=== PATIENT | male | born 1960 | race African-American/Black ===

== ENCOUNTER 2018-03-08 16:39 | Inpatient (IN) ==
--- NOTE | 2018-03-08 17:32 | DR.H&P ---
H&P - History & Physical for Day of: H&P Date: 03/08/18 - Chief Complaint Chief Complaint: COUGHING UP MUCOUS, WHEEZING - History of Present Illness History of Present Illness: 57 [address] DIRECT ADMIT FROM DR LAWRENCE OFFICE AFTER PRESENTING WITH CO INCREASED COUGH WITH CHEST CONGESTION AND WHEEZING. PT CO INCREASED MUCOUS PRODUCTION. PT HAS TRACH STOMA WITH THICK GREEN MUCOUS. PT HAS DYSPHAGIA FOLLOWING A STROKE IN OCTOBER 2017, HAD ESOPHAGEAL DILATION SEVERAL MONTHS AGO AND COULD TOLERATE THICKENED LIQUIDS AND PUREED, WORSE COUGH WHILE EATING. PT HAS PMH OF THROAT CANCER, IN REMISSION, HTN, CVD, OA. PT ADMITTED FOR TREATMENT OF ACUTE BRONCHITIS. - Past Medical History Past Medical History: CVA, GERD, Hypertension, Hypothyroidism Additional Medical History: THROAT CANCER IN 2010 - Past Surgical History Surgical History: Other (ENT) - Family History Family Medical History: Cancer, Hypertension - Social History Does patient currently use any type of tobacco product: No Have you used tobacco products in the last 12 months: No Type of Tobacco Use: None Does any household member use tobacco: No Alcohol Use: None Drug Use: None - Review of Systems Constitutional: Chills Eyes: No Symptoms Reported ENT: Mouth Pain, Throat Pain Respiratory: Cough, Shortness of Breath, Sputum, Wheezing Cardiovascular: denies: Chest Pain, Edema Gastrointestinal: No Symptoms Reported, Other (DYSPHAGIA) Genitourinary: No Symptoms Reported Musculoskeletal: No Symptoms Reported Skin: No Symptoms Reported Neurological: Weakness, Change in Speech (CHRONIC) Oriented: Normal Eyes: Normal Ear: Normal Nose: Normal Throat: Exudate, Dry, Other (DIFFUSE WHITE PLAQUE TO MUCOSA) Respiratory: Rhonchi Throughout, RLL Diminished, LLL Diminished Cardiovascular: Normal : Normal Auscultation: Bowel Sounds: Normal Palpation: Normal Tenderness: Normal Skin: Decreased Turgur Musculoskeletal: Normal Psychiatric: Anxiety Affect: Anxious Speech Pattern: Appropriate, Trach(not ventilated) - Assessment/Plan (1) Acute bronchitis Status: Acute Plan: ADMIT, PNEUMONIA PROTOCOL. BLOOD AND SPUTUM CULTURES, RESP CONSULT. CXR ON ADMISSION, SUPPLEMENTAL O2, IV ATBX. BP CONTROL, VERIFY HOME MEDICATION,PPI. SPEECH CONSULT, PUREED DIET WITH INSTRUCTIONS EAT SLOWLY (2) Dysphagia Status: Acute Plan: SPEECH CONSULT (3) GERD (gastroesophageal reflux disease) Status: Acute (4) CVD (cardiovascular disease) Status: Acute (5) Hypertension Status: Acute
[2018-03-08 17:58] LABS: BASOPHILS % (AUTO) 0.5 % (0.2-1.0); EOSINOPHILS # (AUTO) 0.1 x10^3/uL (0.0-0.2); EOSINOPHILS % (AUTO) 1.7 % (0.9-2.9); HEMOGLOBIN 9.7 g/dL (13.5-18.0); LYMPHOCYTES # (AUTO) 3.6 X10^3/uL (1.3-2.9); LYMPHOCYTES % (AUTO) 44.9 % (21.0-51.0); MEAN CORPUSCULAR HEMOGLOBIN 27.1 pg (27.0-34.0); MEAN CORPUSCULAR HGB CONC 33.5 g/dL (33.0-35.0); MEAN CORPUSCULAR VOLUME 80.9 fL (80.0-100.0); MEAN PLATELET VOLUME 11.6 fL (7.4-11.0); MONOCYTES # (AUTO) 0.6 x10^3/uL (0.3-0.8); MONOCYTES % (AUTO) 6.8 % (0.0-13.0); NEUTROPHILS # (AUTO) 3.7 x10^3/uL (2.2-4.8); NEUTROPHILS % (AUTO) 46.1 % (42.0-75.0); PLATELET COUNT 143 X10^3/uL (150.0-450.0); RED BLOOD COUNT 3.59 X10^6/uL (4.7-6.0); RED CELL DISTRIBUTION WIDTH 16.4 % (11.6-16.5); WHITE BLOOD COUNT 8.1 X10^3/uL (3.6-10.0)
[2018-03-08 18:04] LABS: ALANINE AMINOTRANSFERASE 28 Units/L (12-78); ALBUMIN 3.2 g/dL (3.4-5.0); ALKALINE PHOSPHATASE 217 Units/L (46-116); ASPARTATE AMINO TRANSFERASE 26 Units/L (15-37); BLOOD UREA NITROGEN 25 mg/dL (7-18); CALCIUM 9.2 mg/dL (8.5-10.1); CARBON DIOXIDE 27.5 mmol/L (21-32); CHLORIDE 97 mmol/L (98-107); COR CA(FOR HYPOALB) 9.8 mg/dL (8.5-10.1); CREATININE 1.15 mg/dL (0.70-1.30); SODIUM 136 mmol/L (136-145); TOTAL PROTEIN 10.5 g/dL (6.4-8.2); eGFR NON BLACK RACES > 60 (>60)
[2018-03-08] MEDS ORDERED: NS 1/2 1000 ML IV 1,000 ML IV ONE (18:13)
[2018-03-08] MEDS: ZOSYN VIAL 4.5 GRAMS 4.5 G in NS 100 ML IV + SPIKE MINIBAG* 100 ML IV SCH ×2 (18:24→21:23)
[2018-03-08] MEDS: NORVASC TAB 5 MG PO SCH (18:25)
[2018-03-08] MEDS: PEPCID 20 MG IV PREMIX* 20 MG/50 ML BAG IV SCH ×2 (18:27→21:50)
[2018-03-08] MEDS: NS 1/2 1000 ML IV 1,000 ML IV SCH (18:30)
[2018-03-08 18:42] LABS: BAND NEUTROPHILS % 10 % (0-10); METAMYELOCYTES % 1
[2018-03-08 18:45] LABS: PLATELET MORPHOLOGY COMMENT NORMAL (NORMAL)
[2018-03-08] MEDS ORDERED: PREVNAR 13 IM ONE ×2 (19:15→21:30)
--- NOTE | 2018-03-08 21:26 | RAD ---
Indication: Cough Exam: PA and lateral Comparison: None. Findings: The heart is borderline enlarged. The pulmonary vessels are normal. The lungs are mildly hyperinflated with hazy subsegmental opacities scattered along the right mid lung and lower lobe. There is minimal blunting of the right costophrenic sulcus. The bones are intact. Impression: Subsegmental infiltrates scattered along the right lung base and a questionable tiny effusion vs pleural thickening laterally. Recommend short-term follow-up to assure resolution. Reported By:
[2018-03-08] MEDS: ROBITUSSIN DM PO SCH (21:50)
[2018-03-09] MEDS: TUSSIONEX PENNKINETIC SUSP PO PRN (01:39)
[2018-03-09] MEDS: DUONEB 0.5 MG/3 MG NEB SCH ×6 (01:56→21:43)
[2018-03-09] MEDS: ZOSYN VIAL 4.5 GRAMS 4.5 G in NS 100 ML IV + SPIKE MINIBAG* 100 ML IV SCH ×3 (05:27→22:00)
[2018-03-09 05:52] LABS: BASOPHILS # (AUTO) 0.1 X10^3/uL (0.0-0.1); BASOPHILS % (AUTO) 1.1 % (0.2-1.0); EOSINOPHILS # (AUTO) 0.1 x10^3/uL (0.0-0.2); EOSINOPHILS % (AUTO) 1.7 % (0.9-2.9); HEMOGLOBIN 8.7 g/dL (13.5-18.0); LYMPHOCYTES # (AUTO) 2.6 X10^3/uL (1.3-2.9); LYMPHOCYTES % (AUTO) 33.5 % (21.0-51.0); MEAN CORPUSCULAR HEMOGLOBIN 27.1 pg (27.0-34.0); MEAN CORPUSCULAR HGB CONC 33.6 g/dL (33.0-35.0); MEAN CORPUSCULAR VOLUME 80.9 fL (80.0-100.0); MEAN PLATELET VOLUME 8.8 fL (7.4-11.0); MONOCYTES # (AUTO) 2.5 x10^3/uL (0.3-0.8); MONOCYTES % (AUTO) 32.8 % (0.0-13.0); NEUTROPHILS # (AUTO) 2.4 x10^3/uL (2.2-4.8); NEUTROPHILS % (AUTO) 30.9 % (42.0-75.0); PLATELET COUNT 254 X10^3/uL (150.0-450.0); RED BLOOD COUNT 3.22 X10^6/uL (4.7-6.0); WHITE BLOOD COUNT 7.7 X10^3/uL (3.6-10.0)
[2018-03-09 06:12] LABS: ALANINE AMINOTRANSFERASE 25 Units/L (12-78); ALBUMIN 2.5 g/dL (3.4-5.0); ALKALINE PHOSPHATASE 172 Units/L (46-116); ASPARTATE AMINO TRANSFERASE 24 Units/L (15-37); BLOOD UREA NITROGEN 28 mg/dL (7-18); CALCIUM 8.4 mg/dL (8.5-10.1); CARBON DIOXIDE 23.4 mmol/L (21-32); CHLORIDE 99 mmol/L (98-107); COR CA(FOR HYPOALB) 9.6 mg/dL (8.5-10.1); COR NA(FOR HYPERGLY) 134 mmol/L (136-145); CREATININE 1.08 mg/dL (0.70-1.30); FREE T4 (FREE THYROXINE) 1.36 ng/dL (0.76-1.46); MAGNESIUM 1.8 mg/dL (1.7-2.9); SODIUM 133 mmol/L (136-145); TOTAL PROTEIN 8.5 g/dL (6.4-8.2); eGFR NON BLACK RACES > 60 (>60)
[2018-03-09 07:35] VITALS: BMI 17.9
[2018-03-09] MEDS: NS 1/2 1000 ML IV 1,000 ML IV SCH ×2 (08:51→23:19)
[2018-03-09] MEDS: NORVASC TAB 5 MG PO SCH (08:51)
[2018-03-09] MEDS: PEPCID 20 MG IV PREMIX* 20 MG/50 ML BAG IV SCH ×2 (08:51→22:00)
[2018-03-09] MEDS: ROBITUSSIN DM PO SCH ×4 (08:52→22:00)
[2018-03-09] MEDS ORDERED: NORCO 5/325 MG TAB ONE (08:56)
[2018-03-09] MEDS: NORCO 5/325 MG TAB PO PRN ×3 (10:24→22:01)
[2018-03-10] MEDS: TUSSIONEX PENNKINETIC SUSP PO PRN ×2 (04:12→22:47)
[2018-03-10] MEDS: NORCO 5/325 MG TAB PO PRN ×3 (04:12→20:04)
[2018-03-10] MEDS: ZOSYN VIAL 4.5 GRAMS 4.5 G in NS 100 ML IV + SPIKE MINIBAG* 100 ML IV SCH ×3 (05:34→22:35)
[2018-03-10 05:48] LABS: BASOPHILS # (AUTO) 0.1 X10^3/uL (0.0-0.1); BASOPHILS % (AUTO) 0.9 % (0.2-1.0); EOSINOPHILS # (AUTO) 0.1 x10^3/uL (0.0-0.2); EOSINOPHILS % (AUTO) 1.2 % (0.9-2.9); HEMATOCRIT 26.3 % (42.0-54.0); LYMPHOCYTES # (AUTO) 3.2 X10^3/uL (1.3-2.9); LYMPHOCYTES % (AUTO) 35.7 % (21.0-51.0); MEAN CORPUSCULAR HEMOGLOBIN 27.4 pg (27.0-34.0); MEAN CORPUSCULAR VOLUME 80.4 fL (80.0-100.0); MONOCYTES # (AUTO) 2.8 x10^3/uL (0.3-0.8); MONOCYTES % (AUTO) 31.7 % (0.0-13.0); NEUTROPHILS # (AUTO) 2.7 x10^3/uL (2.2-4.8); NEUTROPHILS % (AUTO) 30.5 % (42.0-75.0); PLATELET COUNT 235 X10^3/uL (150.0-450.0); RED BLOOD COUNT 3.28 X10^6/uL (4.7-6.0); RED CELL DISTRIBUTION WIDTH 15.9 % (11.6-16.5); WHITE BLOOD COUNT 8.8 X10^3/uL (3.6-10.0)
[2018-03-10 06:01] LABS: ALANINE AMINOTRANSFERASE 23 Units/L (12-78); ALBUMIN 2.5 g/dL (3.4-5.0); ALKALINE PHOSPHATASE 162 Units/L (46-116); ASPARTATE AMINO TRANSFERASE 21 Units/L (15-37); BLOOD UREA NITROGEN 18 mg/dL (7-18); CALCIUM 8.5 mg/dL (8.5-10.1); CARBON DIOXIDE 24.1 mmol/L (21-32); CHLORIDE 103 mmol/L (98-107); COR CA(FOR HYPOALB) 9.7 mg/dL (8.5-10.1); COR NA(FOR HYPERGLY) 138 mmol/L (136-145); CREATININE 1.02 mg/dL (0.70-1.30); SODIUM 137 mmol/L (136-145); TOTAL PROTEIN 8.7 g/dL (6.4-8.2); eGFR NON BLACK RACES > 60 (>60)
[2018-03-10 06:40] LABS: PLATELET MORPHOLOGY COMMENT NORMAL (NORMAL)
--- NOTE | 2018-03-10 07:21 | RAD ---
HISTORY: Bronchitis Study: Single-view chest Comparison: 03/08/2018 Findings: The trachea is midline. The cardiac silhouette is unremarkable. The lungs demonstrate a stable right basilar rounded opacity and probable area of scarring along the minor fissure. This is of uncertain etiology and may be chronic. Consider CT for further assessment of these findings.. The bony thorax is unremarkable. IMPRESSION: 1. Stable chest as above. Reported By:
[2018-03-10] MEDS: NORVASC TAB 5 MG PO SCH (09:03)
[2018-03-10] MEDS: ROBITUSSIN DM PO SCH ×4 (09:03→20:04)
[2018-03-10] MEDS: PEPCID 20 MG IV PREMIX* 20 MG/50 ML BAG IV SCH ×2 (09:03→20:15)
[2018-03-10] MEDS: DUONEB 0.5 MG/3 MG NEB SCH ×4 (09:18→21:44)
[2018-03-10] MEDS: NS 1/2 1000 ML IV 1,000 ML IV SCH (12:53)
--- NOTE | 2018-03-10 14:50 | CT ---
HISTORY: Abnormal chest x-ray Study: CT chest without contrast Comparison: Chest x-ray same day Technique: Multiple axial images of the chest were obtained from the thoracic inlet to the upper abdomen without the administration of IV contrast. Findings: The mediastinum appears to demonstrate some pretracheal and subcarinal right hilar adenopathy although the lack of contrast limits assessment. There does appear to be enlarged 11 mm pretracheal lymph node. Previously described opacity in the right lung base posteriorly is again noted and appears relatively solid measuring 4 by 3.3 cm with some apparent erosion of the adjacent rib. The other opacity in the fissure demonstrates fluid density and is felt represent a pseudotumor. Constellation of findings is highly concerning for malignancy and further evaluation with PET-CT would be of benefit.. There is also a tiny 4 mm left lower lobe nodule on image 36 which close follow-up be needed. There is no pericardial effusion observed. The thoracic aorta is normal in its contour without evidence for aneurysmal dilatation. The bony thorax is unremarkable in its appearance. The visualized portions of the upper abdomen are grossly unremarkable. IMPRESSION: 1. Mediastinal and hilar adenopathy as above with a solid-appearing right lower lobe pleural-based masslike opacity. These findings are highly concerning for malignancy and correlation with a PET-CT is recommended. Please see above discussion. Reported By:
[2018-03-11] MEDS: NS 1/2 1000 ML IV 1,000 ML IV SCH ×2 (03:15→18:15)
[2018-03-11] MEDS: NORCO 5/325 MG TAB PO PRN ×4 (03:50→22:11)
[2018-03-11] MEDS: ZOSYN VIAL 4.5 GRAMS 4.5 G in NS 100 ML IV + SPIKE MINIBAG* 100 ML IV SCH ×3 (05:03→21:21)
[2018-03-11 05:29] LABS: BASOPHILS # (AUTO) 0.2 X10^3/uL (0.0-0.1); BASOPHILS % (AUTO) 1.9 % (0.2-1.0); EOSINOPHILS # (AUTO) 0.2 x10^3/uL (0.0-0.2); EOSINOPHILS % (AUTO) 2.3 % (0.9-2.9); HEMATOCRIT 26.3 % (42.0-54.0); HEMOGLOBIN 8.9 g/dL (13.5-18.0); LYMPHOCYTES # (AUTO) 3.7 X10^3/uL (1.3-2.9); LYMPHOCYTES % (AUTO) 43.3 % (21.0-51.0); MEAN CORPUSCULAR HEMOGLOBIN 27.3 pg (27.0-34.0); MEAN CORPUSCULAR HGB CONC 33.7 g/dL (33.0-35.0); MEAN PLATELET VOLUME 9.2 fL (7.4-11.0); MONOCYTES # (AUTO) 1.6 x10^3/uL (0.3-0.8); MONOCYTES % (AUTO) 18.9 % (0.0-13.0); NEUTROPHILS # (AUTO) 2.8 x10^3/uL (2.2-4.8); NEUTROPHILS % (AUTO) 33.6 % (42.0-75.0); PLATELET COUNT 232 X10^3/uL (150.0-450.0); RED BLOOD COUNT 3.24 X10^6/uL (4.7-6.0); RED CELL DISTRIBUTION WIDTH 15.9 % (11.6-16.5); WHITE BLOOD COUNT 8.4 X10^3/uL (3.6-10.0)
[2018-03-11 05:41] LABS: BLOOD UREA NITROGEN 18 mg/dL (7-18); CALCIUM 8.9 mg/dL (8.5-10.1); CARBON DIOXIDE 25.4 mmol/L (21-32); CHLORIDE 102 mmol/L (98-107); COR NA(FOR HYPERGLY) 138 mmol/L (136-145); CREATININE 0.98 mg/dL (0.70-1.30); SODIUM 137 mmol/L (136-145); eGFR NON BLACK RACES > 60 (>60)
[2018-03-11 06:30] LABS: BAND NEUTROPHILS % 3 % (0-10); METAMYELOCYTES % 4
[2018-03-11 06:31] LABS: PLATELET MORPHOLOGY COMMENT NORMAL (NORMAL)
[2018-03-11] MEDS: DUONEB 0.5 MG/3 MG NEB SCH ×5 (07:25→20:57)
--- NOTE | 2018-03-11 08:58 | CT ---
HISTORY: Right lung mass Study: CT chest with contrast Comparison: CT chest without contrast 03/10/2018 Technique: Axial post-contrast images with coronal and sagittal reformats. Dose reduction procedures were used with mA/kv adjusted for body size. Findings: Examination of the mediastinum demonstrated abnormal retrocaval pretracheal, AP window, and subcarinal lymphadenopathy. No definite hilar adenopathy is identified. No pleural effusions are identified. No chest wall or axillary abnormality is identified. Those portions of the upper abdominal organs visualized were within normal limits. Examination of the lung arreguin demonstrated some subsegmental atelectasis in the right middle lobe abutting the fissure. Posteriorly abutting the pleura in the right lower lobe is again identified a 4.2 by 3.1 by 3.7 cm mass lesion with some central low attenuation suggesting the possibility of necrosis. A primary lung neoplasm must be excluded. PET-CT would be of further diagnostic value in assessing the mass and the mediastinal adenopathy previously described. Once again noted is a 4 mm left upper lobe pulmonary nodule unchanged from the prior examination. IMPRESSION: 4.2 x 3.1 x 3.7 cm right lower lobe lung mass abutting the posterior pleura with associated mediastinal adenopathy. Primary lung neoplasm must be excluded. PET-CT is recommended for further evaluation 4 mm left upper lobe pulmonary nodule which will require CT follow-up. Reported By:
[2018-03-11] MEDS: NORVASC TAB 5 MG PO SCH (09:30)
[2018-03-11] MEDS: PEPCID 20 MG IV PREMIX* 20 MG/50 ML BAG IV SCH ×2 (09:30→20:12)
[2018-03-11] MEDS: ROBITUSSIN DM PO SCH ×4 (09:30→20:12)
--- NOTE | 2018-03-11 11:08 | CT ---
HISTORY: Lung mass Study: CT abdomen pelvis with contrast Comparison: None Technique: Axial post-contrast images with coronal and sagittal reformats. Dose reduction procedures were used with mA/kv adjusted for body size. Findings: Once again noted is the patient's right lower lobe lung mass. Primary lung neoplasm must be excluded. The left lung base is clear. The liver, spleen, adrenal glands, and pancreas are within normal limits. No opaque stones are visible within the gallbladder. The kidneys are unobstructed and without stones or masses. No ureteral calculi are identified. Mild calcific atherosclerotic changes present in a nondilated abdominal aorta. No intraperitoneal or retroperitoneal lymphadenopathy of significance is identified. The appendix is not identified with absolute certainty. There are no secondary signs of appendicitis present. There are no findings suggestive of diverticulitis or colitis. Examination of the pelvis demonstrated no evidence for pelvic masses, pelvic fluid, or pelvic lymphadenopathy. No bladder abnormality is identified. There is a large amount of stool within the colon suggestive of constipation. There is a sclerotic lesion in the left iliac wing. Evaluation with nuclear medicine bone scan is recommended to exclude a significant active process. No lytic skeletal lesions are identified. IMPRESSION: No acute abnormality within the abdomen or pelvis Constipation Sclerotic lesion left iliac bone for which further evaluation with nuclear medicine bone scan is recommended. Right lower lobe lung mass. Primary lung neoplasm must be excluded. Reported By:
[2018-03-11] MEDS: TUSSIONEX PENNKINETIC SUSP PO PRN (12:30)
[2018-03-11 14:56] LABS: ALANINE AMINOTRANSFERASE 22 Units/L (12-78); ASPARTATE AMINO TRANSFERASE 23 Units/L (15-37)
[2018-03-11 14:57] LABS: ALBUMIN 2.5 g/dL (3.4-5.0); ALKALINE PHOSPHATASE 154 Units/L (46-116); COR CA(FOR HYPOALB) 10.1 mg/dL (8.5-10.1); TOTAL PROTEIN 8.8 g/dL (6.4-8.2)
[2018-03-11] MEDS ORDERED: NS 1/2 1000 ML IV 1,000 ML IV ONE (20:06)
[2018-03-12 04:57] LABS: BLOOD UREA NITROGEN 19 mg/dL (7-18); CARBON DIOXIDE 23.4 mmol/L (21-32); CHLORIDE 105 mmol/L (98-107); CREATININE 1.02 mg/dL (0.70-1.30); SODIUM 141 mmol/L (136-145); eGFR NON BLACK RACES > 60 (>60)
[2018-03-12 05:06] LABS: BASOPHILS % (AUTO) 0.5 % (0.2-1.0); EOSINOPHILS # (AUTO) 0.2 x10^3/uL (0.0-0.2); EOSINOPHILS % (AUTO) 4.2 % (0.9-2.9); HEMATOCRIT 28.1 % (42.0-54.0); HEMOGLOBIN 9.2 g/dL (13.5-18.0); LYMPHOCYTES # (AUTO) 2.2 X10^3/uL (1.3-2.9); LYMPHOCYTES % (AUTO) 47.3 % (21.0-51.0); MEAN CORPUSCULAR HEMOGLOBIN 26.6 pg (27.0-34.0); MEAN CORPUSCULAR HGB CONC 32.8 g/dL (33.0-35.0); MEAN CORPUSCULAR VOLUME 81.2 fL (80.0-100.0); MEAN PLATELET VOLUME 10.1 fL (7.4-11.0); MONOCYTES # (AUTO) 1.1 x10^3/uL (0.3-0.8); MONOCYTES % (AUTO) 25.1 % (0.0-13.0); NEUTROPHILS % (AUTO) 22.9 % (42.0-75.0); PLATELET COUNT 149 X10^3/uL (150.0-450.0); RED BLOOD COUNT 3.47 X10^6/uL (4.7-6.0); RED CELL DISTRIBUTION WIDTH 15.9 % (11.6-16.5); WHITE BLOOD COUNT 4.6 X10^3/uL (3.6-10.0)
[2018-03-12] MEDS: ZOSYN VIAL 4.5 GRAMS 4.5 G in NS 100 ML IV + SPIKE MINIBAG* 100 ML IV SCH ×3 (05:22→21:14)
[2018-03-12] MEDS: NORCO 5/325 MG TAB PO PRN ×3 (05:30→17:38)
[2018-03-12] MEDS: NS 1/2 1000 ML IV 1,000 ML IV SCH ×2 (05:52→20:53)
[2018-03-12 06:20] LABS: BAND NEUTROPHILS % 3 % (0-10); METAMYELOCYTES % 1
[2018-03-12 06:21] LABS: PLATELET MORPHOLOGY COMMENT NORMAL (NORMAL)
[2018-03-12] MEDS: DUONEB 0.5 MG/3 MG NEB SCH ×4 (08:34→20:11)
[2018-03-12] MEDS: NORVASC TAB 5 MG PO SCH (09:17)
[2018-03-12] MEDS: PEPCID 20 MG IV PREMIX* 20 MG/50 ML BAG IV SCH ×2 (09:17→20:47)
[2018-03-12] MEDS: ROBITUSSIN DM PO SCH ×4 (09:17→20:47)
[2018-03-12] MEDS: TUSSIONEX PENNKINETIC SUSP PO PRN (09:18)
[2018-03-12] MEDS: LEVAQUIN PREMIX IV 250 MG 250 MG/50 ML BAG IV SCH (17:48)
[2018-03-13] MEDS: NORCO 5/325 MG TAB PO PRN ×2 (00:20→06:12)
[2018-03-13] MEDS: ZOSYN VIAL 4.5 GRAMS 4.5 G in NS 100 ML IV + SPIKE MINIBAG* 100 ML IV SCH (05:09)
[2018-03-13 05:32] LABS: BASOPHILS % (AUTO) 0.8 % (0.2-1.0); EOSINOPHILS # (AUTO) 0.2 x10^3/uL (0.0-0.2); EOSINOPHILS % (AUTO) 3.3 % (0.9-2.9); HEMATOCRIT 30.1 % (42.0-54.0); HEMOGLOBIN 9.8 g/dL (13.5-18.0); LYMPHOCYTES # (AUTO) 2.9 X10^3/uL (1.3-2.9); LYMPHOCYTES % (AUTO) 52.3 % (21.0-51.0); MEAN CORPUSCULAR HEMOGLOBIN 26.7 pg (27.0-34.0); MEAN CORPUSCULAR HGB CONC 32.6 g/dL (33.0-35.0); MEAN CORPUSCULAR VOLUME 81.9 fL (80.0-100.0); MEAN PLATELET VOLUME 8.9 fL (7.4-11.0); MONOCYTES # (AUTO) 0.4 x10^3/uL (0.3-0.8); MONOCYTES % (AUTO) 7.2 % (0.0-13.0); NEUTROPHILS % (AUTO) 36.4 % (42.0-75.0); PLATELET COUNT 223 X10^3/uL (150.0-450.0); RED BLOOD COUNT 3.67 X10^6/uL (4.7-6.0); RED CELL DISTRIBUTION WIDTH 15.8 % (11.6-16.5); WHITE BLOOD COUNT 5.6 X10^3/uL (3.6-10.0)
[2018-03-13 05:40] LABS: ALANINE AMINOTRANSFERASE 27 Units/L (12-78); ALBUMIN 2.6 g/dL (3.4-5.0); ALKALINE PHOSPHATASE 161 Units/L (46-116); ASPARTATE AMINO TRANSFERASE 33 Units/L (15-37); BLOOD UREA NITROGEN 22 mg/dL (7-18); CARBON DIOXIDE 21.7 mmol/L (21-32); CHLORIDE 105 mmol/L (98-107); COR CA(FOR HYPOALB) 10.1 mg/dL (8.5-10.1); CREATININE 1.13 mg/dL (0.70-1.30); SODIUM 140 mmol/L (136-145); TOTAL PROTEIN 9.5 g/dL (6.4-8.2); eGFR NON BLACK RACES > 60 (>60)
[2018-03-13] MEDS: LEVAQUIN PREMIX IV 250 MG 250 MG/50 ML BAG IV SCH (09:02)
[2018-03-13] MEDS: PEPCID 20 MG IV PREMIX* 20 MG/50 ML BAG IV SCH (09:02)
[2018-03-13] MEDS: ROBITUSSIN DM PO SCH (09:03)
[2018-03-13] MEDS: NORVASC TAB 5 MG PO SCH (09:03)
[2018-03-13] MEDS: DUONEB 0.5 MG/3 MG NEB SCH ×3 (09:21→12:30)
[2018-03-13 13:30] VITALS: BP 124/82
--- NOTE | 2018-03-13 13:48 | PCM.PROG ---
Progress Note - Progress Note for Day of Date of Exam: 03/13/18 - Subjective Subjective: 57 BM ADMITTED ON 03/08 WITH SUSPECTED ASPIPRATION PNEUMONIA. PT HAD CT CHEST REVEALING RIGHT LUNG MASS. PT HAS PX OF THROAT CANCER, IN REMISSION SINCE ~2010. PT CURRENTLY ON PUREED DIET, TOLERATING WELL, ON IV ATBX AND RESP THERAPY. DISCUSSED RAD REPORT WITH PT AND DISCUSSED PLAN FOR TRANSFER TO TERTIARY CARE FOR ESOPHAGEAL DILATION AND EVALUATION OF LUNG MASS. - Past Medical Family Social History Past Med/Fam/Surg Hx: No changes since H&P Allergies: Allergies No Known Drug Allergies Allergy (Verified 03/08/18 18:03) - Review of Systems ROS: No change since H&P - Vital Signs and I&O's Vital Signs: Temperature 98.6 F Pulse Rate [Radial] 104 Pulse Rate 100 Respiratory Rate 18 Blood Pressure [Left Arm] 124/82 Blood Pressure [Right Arm] 134/78 O2 Sat by Pulse Oximetry 95 Intake and Output: Intake & Output 03/11/18 03/12/18 03/13/18 03/14/18 11:59 11:59 11:59 11:59 Intake Total 1881 / 1881 2196 / 2196 2130 / 2130 Output Total 1025 / 1025 650 / 650 225 / 225 Balance 856 / 856 1546 / 1546 1905 / 1905 - Physical Exam Oriented: Normal Eyes: Normal Ear: Normal Nose: Normal Throat: Exudate, Dry, Other (DIFFUSE WHITE PLAQUE TO MUCOSA) Respiratory: Diminished, Rhonchi Cardiovascular: Normal : Normal Auscultation: Bowel Sounds: Normal Tenderness: Normal Skin: Decreased Turgur Musculoskeletal: Normal Psychiatric: Anxiety Affect: Anxious Speech Pattern: Aphasic - Laboratory and Diagnostics Result Diagrams: 03/13/18 04:52 03/13/18 04:52 Labs: 03/08/18 17:40 Blood Blood Culture - Final Salmonella Arizonae 03/08/18 19:20 Sputum - Expectorated Sputum Sputum Culture - Final Proteus Mirabilis 03/08/18 19:20 Sputum - Expectorated Sputum - Final 03/08/18 17:35 Blood Blood Culture - Preliminary Laboratory WBC 5.6 X10^3/uL (3.6-10.0) 03/13/18 04:52 RBC 3.67 X10^6/uL (4.7-6.0) L 03/13/18 04:52 Hgb 9.8 g/dL (13.5-18.0) L 03/13/18 04:52 Hct 30.1 % (42.0-54.0) L 03/13/18 04:52 MCV 81.9 fL (80.0-100.0) 03/13/18 04:52 MCH 26.7 pg (27.0-34.0) L 03/13/18 04:52 MCHC 32.6 g/dL (33.0-35.0) L 03/13/18 04:52 RDW 15.8 % (11.6-16.5) 03/13/18 04:52 Plt Count 223 X10^3/uL (150.0-450.0) 03/13/18 04:52 Plt Count Comment Adequate (ADEQUATE) 03/12/18 04:35 MPV 8.9 fL (7.4-11.0) 03/13/18 04:52 Neut % (Auto) 36.4 % (42.0-75.0) L 03/13/18 04:52 Lymph % (Auto) 52.3 % (21.0-51.0) H 03/13/18 04:52 Wythe % (Auto) 7.2 % (0.0-13.0) 03/13/18 04:52 Eos % (Auto) 3.3 % (0.9-2.9) H 03/13/18 04:52 Baso % (Auto) 0.8 % (0.2-1.0) 03/13/18 04:52 Neut # (Auto) 2.0 x10^3/uL (2.2-4.8) L 03/13/18 04:52 Lymph # (Auto) 2.9 X10^3/uL (1.3-2.9) 03/13/18 04:52 Wythe # (Auto) 0.4 x10^3/uL (0.3-0.8) 03/13/18 04:52 Eos # (Auto) 0.2 x10^3/uL (0.0-0.2) 03/13/18 04:52 Baso # (Auto) 0.0 X10^3/uL (0.0-0.1) 03/13/18 04:52 Absolute Nucleated RBC 0.2 /100WBC 03/13/18 04:52 Total Counted 100 03/12/18 04:35 Neutrophils % (Manual) 36 % (39-76) L 03/12/18 04:35 Band Neutrophils % 3 % (0-10) 03/12/18 04:35 Lymphocytes % (Manual) 46 % (13-43) H 03/12/18 04:35 Monocytes % (Manual) 7 % (4-9) 03/12/18 04:35 Eosinophils % (Manual) 5 % (0-6) 03/12/18 04:35 Metamyelocytes % 1 03/12/18 04:35 Atypical Lymphocytes 2 03/12/18 04:35 Plt Clumps, EDTA Rare 03/08/18 17:35 Plt Morphology Comment Normal (NORMAL) 03/12/18 04:35 RBC Morphology Normal (NORMAL) 03/12/18 04:35 Sodium 140 mmol/L (136-145) 03/13/18 04:52 Corrected Sodium TNP 03/13/18 04:52 Potassium 5.1 mmol/L (3.5-5.1) 03/13/18 04:52 Chloride 105 mmol/L (98-107) 03/13/18 04:52 Carbon Dioxide 21.7 mmol/L (21-32) 03/13/18 04:52 BUN 22 mg/dL (7-18) H 03/13/18 04:52 Creatinine 1.13 mg/dL (0.70-1.30) 03/13/18 04:52 Est GFR (MDRD) Af Amer > 60 (>60) 03/13/18 04:52 Est GFR (MDRD) Non-Af > 60 (>60) 03/13/18 04:52 Glucose 93 mg/dL (65-99) 03/13/18 04:52 Calcium 9.0 mg/dL (8.5-10.1) 03/13/18 04:52 Corrected Calcium 10.1 mg/dL (8.5-10.1) 03/13/18 04:52 Magnesium 1.8 mg/dL (1.7-2.9) 03/09/18 05:00 Total Bilirubin 0.20 mg/dL (0.2-1.0) 03/13/18 04:52 AST 33 Units/L (15-37) 03/13/18 04:52 ALT 27 Units/L (12-78) 03/13/18 04:52 Alkaline Phosphatase 161 Units/L (46-116) H 03/13/18 04:52 Total Protein 9.5 g/dL (6.4-8.2) H 03/13/18 04:52 Albumin 2.6 g/dL (3.4-5.0) L 03/13/18 04:52 Globulin 6.9 g/dL (2.5-4.5) H 03/13/18 04:52 Albumin/Globulin Ratio 0.4 Ratio (1.1-2.1) L 03/13/18 04:52 Free T4 1.36 ng/dL (0.76-1.46) 03/09/18 05:00 - Plan (1) Acute bronchitis Status: Acute Plan: PNEUMONIA PROTOCOL. BLOOD AND SPUTUM CULTURES COLLECTED ON ADMISSION, RESP CARE. SUPPLEMENTAL O2, IV ATBX. BP CONTROL, ,PPI. SPEECH CONSULT, PUREED DIET WITH INSTRUCTIONS EAT SLOWLY (2) Dysphagia Status: Acute Plan: SPEECH CONSULT (3) GERD (gastroesophageal reflux disease) Status: Acute (4) CVD (cardiovascular disease) Status: Acute (5) Hypertension Status: Acute (6) Mass of right lung Status: Acute Plan: TRANSFER TO TERTIARY CARE FOR TISSUE BIOPSY, PULMONOLGY EVALUATION
== END 2018-03-13 12:55 | disposition short-term general hospital (02) | DRG 177 ==
LOC: MED/SURG 17:02
PROVIDERS: ADMIT Internal Medicine; ATTEND Internal Medicine
DX: R13.11 Dysphagia, oral phase; R06.02 Shortness of breath; Z23 Encounter for immunization; Z93.0 Tracheostomy status; J69.8 Pneumonitis due to inhalation of other solids and liquids; J20.8 Acute bronchitis due to other specified organisms; Z85.818 Personal history of malignant neoplasm of other sites of lip, oral cavity, and pharynx; R94.5 Abnormal results of liver function studies; I10 Essential (primary) hypertension; A02.1 Salmonella sepsis; I69.391 Dysphagia following cerebral infarction; R91.8 Other nonspecific abnormal finding of lung field; K22.2 Esophageal obstruction; A02.8 Other specified salmonella infections
CPT/HCPCS: 36415; 71010; 71020; 71045; 71046; 71250; 71260; 74177; 80048; 80053; 83735; 84439; 84480; 85025; 87040; 87070; 87077; 87186; 87205; 94640; 94669; 94760; 97163; 97165; 99221; 99231; A4222; S0028; 90670; J1956; J2543; J7050; J7620

== ENCOUNTER 2018-03-28 18:15 | Inpatient (IN) ==
[2018-03-31 05:11] LABS: BASOPHILS % (AUTO) 0.2 % (0.2-1.0); EOSINOPHILS # (AUTO) 0.2 x10^3/uL (0.0-0.2); EOSINOPHILS % (AUTO) 3.8 % (0.9-2.9); HEMATOCRIT 29.1 % (42.0-54.0); HEMOGLOBIN 9.6 g/dL (13.5-18.0); LYMPHOCYTES # (AUTO) 3.2 X10^3/uL (1.3-2.9); LYMPHOCYTES % (AUTO) 52.1 % (21.0-51.0); MEAN CORPUSCULAR HEMOGLOBIN 27.1 pg (27.0-34.0); MEAN CORPUSCULAR HGB CONC 33.1 g/dL (33.0-35.0); MEAN CORPUSCULAR VOLUME 81.9 fL (80.0-100.0); MEAN PLATELET VOLUME 9.1 fL (7.4-11.0); MONOCYTES # (AUTO) 0.4 x10^3/uL (0.3-0.8); NEUTROPHILS # (AUTO) 2.3 x10^3/uL (2.2-4.8); NEUTROPHILS % (AUTO) 37.9 % (42.0-75.0); PLATELET COUNT 224 X10^3/uL (150.0-450.0); RED BLOOD COUNT 3.55 X10^6/uL (4.7-6.0); RED CELL DISTRIBUTION WIDTH 16.1 % (11.6-16.5); WHITE BLOOD COUNT 6.1 X10^3/uL (3.6-10.0)
[2018-03-31 05:27] LABS: ALANINE AMINOTRANSFERASE 20 Units/L (12-78); ALBUMIN 2.7 g/dL (3.4-5.0); ALKALINE PHOSPHATASE 165 Units/L (46-116); ASPARTATE AMINO TRANSFERASE 15 Units/L (15-37); BLOOD UREA NITROGEN 14 mg/dL (7-18); CALCIUM 9.1 mg/dL (8.5-10.1); CARBON DIOXIDE 24.3 mmol/L (21-32); CHLORIDE 102 mmol/L (98-107); COR CA(FOR HYPOALB) 10.1 mg/dL (8.5-10.1); COR NA(FOR HYPERGLY) 138 mmol/L (136-145); CREATININE 0.88 mg/dL (0.70-1.30); SODIUM 138 mmol/L (136-145); TOTAL PROTEIN 8.5 g/dL (6.4-8.2); eGFR NON BLACK RACES > 60 (>60)
[2018-03-31 05:29] LABS: BAND NEUTROPHILS % 2 % (0-10); PLATELET MORPHOLOGY COMMENT NORMAL (NORMAL)
[2018-03-31] MEDS: NORCO 5/325 MG TAB PO PRN ×3 (05:54→20:06)
[2018-03-31 08:19] VITALS: BMI 19.8
--- NOTE | 2018-03-31 11:36 | RAD ---
HISTORY: COPD and lung cancer Study: Single view of the chest. Comparison: 03/08/2018 Findings: The cardiomediastinal silhouette is normal. Right-sided lung opacities are unchanged from prior. Osseous structures demonstrate no acute abnormality. IMPRESSION: 1. No acute cardiopulmonary process. 2. No significant change in appearance of right lung opacities which are likely related to patient's diagnosis of lung cancer. Reported By:
[2018-03-31] MEDS ORDERED: ZYLOPRIM PO SCH (12:00)
[2018-03-31] MEDS ORDERED: APRESOLINE TAB 25 MG PO PRN ×2 (13:21→13:33)
--- NOTE | 2018-03-31 13:28 | DR.H&P ---
H&P - History & Physical for Day of: H&P Date: 03/30/18 - Chief Complaint Chief Complaint: GENERALIZED WEAKNESS - History of Present Illness History of Present Illness: 57 BM BACK TRANSFER FROM [facility] WITH GENERALIZED WEAKNESS AND ADULT FAILURE TO THRIVE WITH DIAGNOSIS OF METASTATIC LUNG CANCER, APHAGIA S/P CVA. PT HAS PMH OF HTN, THROAT CANCER, NEWLY DX WITH LUNG CANCER, APHAGIA, DYSPHAGIA FOLLOW CVA, COPD, HTN, OA. PLAN TO CONSULT CASE MANAGEMENT FOR PLACEMENT IN LTC FACILITY, PT IS UNABLE TO CARE FOR HIMSELF DUE TO CHRONIC ILLNESS. - Past Medical History Past Medical History: Arthritis, COPD, CVA, Depression, GERD, Hypertension, Hypothyroidism Additional Medical History: THROAT CANCER IN 2010 - Past Surgical History Surgical History: Other - Family History Family Medical History: Cancer, Hypertension - Social History Does patient currently use any type of tobacco product: No Have you used tobacco products in the last 12 months: No Type of Tobacco Use: None Does any household member use tobacco: No Alcohol Use: None Drug Use: None - Medications Home Medications: No Known Drug Allergies Allergy (Verified 03/08/18 18:03) CONTINUE taking the following medications ascorbic acid (vitamin C) 1,000 mg PO DAILY 03/30/18 [History] aspirin 81 mg PO QDAY 03/30/18 [History] ferrous sulfate 325 mg PO TID 03/30/18 [History] hydralazine 25 mg PO Q4H PRN 03/30/18 [History] loratadine 10 mg PO QDAY 03/30/18 [History] pantoprazole 40 mg PO QDAY 03/30/18 [History] - Review of Systems Constitutional: Weakness Eyes: No Symptoms Reported ENT: No Symptoms Reported Respiratory: Cough, Sputum Cardiovascular: No Symptoms Reported Gastrointestinal: No Symptoms Reported, Other (WEIGHT LOSS, DIFFICULT SWALLOWING ) Genitourinary: No Symptoms Reported Musculoskeletal: Back Pain Skin: No Symptoms Reported Neurological: Weakness - Physical Exam Vital Signs: Temperature 98.3 F Pulse Rate [Left Radial] 92 Respiratory Rate 18 Blood Pressure [Left Arm] 137/88 Blood Pressure [Right Arm] 134/78 Blood Pressure 124/82 O2 Sat by Pulse Oximetry 97 Oriented: Normal Eyes: Normal Ear: Normal Nose: Normal Throat: Normal, Other (TRACH STOMA) Respiratory: Rhonchi Throughout (MILD CENTRAL RHONCHI), RML Diminished, RLL Diminished, LML Diminished, LLL Diminished Cardiovascular: Normal : Normal Auscultation: Bowel Sounds: Normal Palpation: Normal Tenderness: Normal Skin: Decreased Turgur Musculoskeletal: Right, Left, Leg, Back:Lumbar, Sensory Deficit, Instability Mood Description: Calm Speech Pattern: Aphasic - Assessment/Plan (1) Weakness Status: Acute Plan: ADMIT, ROUTINE LABS CBC CMP. CXR ON ADMISSION. VERIFY AND RESUME HOME MEDICATION. PRN RESP, PUREED DIET. CHOKING PRECAUTIONS (2) Lung cancer Status: Acute (3) Adult failure to thrive Status: Acute (4) Dysphagia Status: Acute (5) GERD (gastroesophageal reflux disease) Status: Acute (6) CVD (cardiovascular disease) Status: Acute (7) Hypertension Status: Acute - Allergies Allergies/Adverse Reactions: Allergies Allergy/AdvReac Type Severity Reaction Status Date / Time No Known Drug Allergies Allergy Verified 03/08/18 18:03
--- NOTE | 2018-03-31 13:37 | PCM.PROG ---
Progress Note - Progress Note for Day of Date of Exam: 03/31/18 - Subjective Subjective: 57 BM WITH METASTATIC LUNG CANCER, GENERALIZED WEAKNESS AND ADULT FAILURE TO THRIVE, BACK TRANSFER FROM [facility] FOLLOWING EXTENDED HOSPITALIZATION. CASE MANAGEMENT CONSULTED FOR PERMANENT HALFWAY PLACEMENT. PT HAD ADMISSION LABS AND CXR THIS AM, CONTINUED HOME MEDICATION AND PRN RESP SUCTION AND DUO NEBS. - Past Medical Family Social History Past Med/Fam/Surg Hx: No changes since H&P Allergies: Allergies No Known Drug Allergies Allergy (Verified 03/08/18 18:03) - Review of Systems ROS: No change since H&P - Vital Signs and I&O's Vital Signs: Temperature 98.3 F Pulse Rate [Left Radial] 92 Respiratory Rate 18 Blood Pressure [Left Arm] 137/88 Blood Pressure [Right Arm] 134/78 Blood Pressure 124/82 O2 Sat by Pulse Oximetry 97 Intake and Output: Intake & Output 03/29/18 03/30/18 03/31/18 04/01/18 11:59 11:59 11:59 11:59 Intake Total 480 / 480 Output Total 600 / 600 Balance -120 / -120 - Physical Exam Oriented: Normal Eyes: Normal Ear: Normal Nose: Normal Throat: Normal, Other (TRACH STOMA) Respiratory: Diminished, Rhonchi Cardiovascular: Normal : Normal Auscultation: Bowel Sounds: Normal Tenderness: Normal Skin: Decreased Turgur Musculoskeletal: Right, Left, Leg, Back:Lumbar, Sensory Deficit, Instability Mood Description: Calm Speech Pattern: Aphasic - Laboratory and Diagnostics Result Diagrams: 03/31/18 04:50 03/31/18 04:50 Labs: Laboratory WBC 6.1 X10^3/uL (3.6-10.0) 03/31/18 04:50 RBC 3.55 X10^6/uL (4.7-6.0) L 03/31/18 04:50 Hgb 9.6 g/dL (13.5-18.0) L 03/31/18 04:50 Hct 29.1 % (42.0-54.0) L 03/31/18 04:50 MCV 81.9 fL (80.0-100.0) 03/31/18 04:50 MCH 27.1 pg (27.0-34.0) 03/31/18 04:50 MCHC 33.1 g/dL (33.0-35.0) 03/31/18 04:50 RDW 16.1 % (11.6-16.5) 03/31/18 04:50 Plt Count 224 X10^3/uL (150.0-450.0) 03/31/18 04:50 Plt Count Comment Adequate (ADEQUATE) 03/31/18 04:50 MPV 9.1 fL (7.4-11.0) 03/31/18 04:50 Neut % (Auto) 37.9 % (42.0-75.0) L 03/31/18 04:50 Lymph % (Auto) 52.1 % (21.0-51.0) H 03/31/18 04:50 Foster % (Auto) 6.0 % (0.0-13.0) 03/31/18 04:50 Eos % (Auto) 3.8 % (0.9-2.9) H 03/31/18 04:50 Baso % (Auto) 0.2 % (0.2-1.0) 03/31/18 04:50 Neut # (Auto) 2.3 x10^3/uL (2.2-4.8) 03/31/18 04:50 Lymph # (Auto) 3.2 X10^3/uL (1.3-2.9) H 03/31/18 04:50 Foster # (Auto) 0.4 x10^3/uL (0.3-0.8) 03/31/18 04:50 Eos # (Auto) 0.2 x10^3/uL (0.0-0.2) 03/31/18 04:50 Baso # (Auto) 0.0 X10^3/uL (0.0-0.1) 03/31/18 04:50 Absolute Nucleated RBC 0.1 /100WBC 03/31/18 04:50 Total Counted 100 03/31/18 04:50 Neutrophils % (Manual) 45 % (39-76) 03/31/18 04:50 Band Neutrophils % 2 % (0-10) 03/31/18 04:50 Lymphocytes % (Manual) 45 % (13-43) H 03/31/18 04:50 Monocytes % (Manual) 7 % (4-9) 03/31/18 04:50 Eosinophils % (Manual) 1 % (0-6) 03/31/18 04:50 Plt Morphology Comment Normal (NORMAL) 03/31/18 04:50 RBC Morphology Normal (NORMAL) 03/31/18 04:50 Sodium 138 mmol/L (136-145) 03/31/18 04:50 Corrected Sodium 138 mmol/L (136-145) 03/31/18 04:50 Potassium 4.4 mmol/L (3.5-5.1) 03/31/18 04:50 Chloride 102 mmol/L (98-107) 03/31/18 04:50 Carbon Dioxide 24.3 mmol/L (21-32) 03/31/18 04:50 BUN 14 mg/dL (7-18) 03/31/18 04:50 Creatinine 0.88 mg/dL (0.70-1.30) 03/31/18 04:50 Est GFR (MDRD) Af Amer > 60 (>60) 03/31/18 04:50 Est GFR (MDRD) Non-Af > 60 (>60) 03/31/18 04:50 Glucose 115 mg/dL (65-99) H 03/31/18 04:50 Calcium 9.1 mg/dL (8.5-10.1) 03/31/18 04:50 Corrected Calcium 10.1 mg/dL (8.5-10.1) 03/31/18 04:50 Total Bilirubin 0.10 mg/dL (0.2-1.0) L 03/31/18 04:50 AST 15 Units/L (15-37) 03/31/18 04:50 ALT 20 Units/L (12-78) 03/31/18 04:50 Alkaline Phosphatase 165 Units/L (46-116) H 03/31/18 04:50 Total Protein 8.5 g/dL (6.4-8.2) H 03/31/18 04:50 Albumin 2.7 g/dL (3.4-5.0) L 03/31/18 04:50 Globulin 5.8 g/dL (2.5-4.5) H 03/31/18 04:50 Albumin/Globulin Ratio 0.5 Ratio (1.1-2.1) L 03/31/18 04:50 - Plan (1) Weakness Status: Acute Plan: ROUTINE LABS CBC CMP. CXR ON ADMISSION. VERIFY AND RESUME HOME MEDICATION. PRN RESP, PUREED DIET. CHOKING PRECAUTIONS (2) Lung cancer Status: Acute (3) Adult failure to thrive Status: Acute (4) Dysphagia Status: Acute (5) GERD (gastroesophageal reflux disease) Status: Acute (6) CVD (cardiovascular disease) Status: Acute (7) Hypertension Status: Acute
[2018-03-31] MEDS ORDERED: ASPIRIN 81 MG CHEWTAB PO SCH (14:00)
[2018-03-31] MEDS ORDERED: CLARITIN PO SCH (14:00)
[2018-03-31] MEDS ORDERED: PROTONIX TAB 40 MG PO SCH (14:00)
[2018-03-31] MEDS ORDERED: LIPITOR TAB 40 MG PO SCH (14:00)
[2018-03-31] MEDS: CLARITIN PO SCH (15:21)
[2018-03-31] MEDS: FERROUS GLUCONATE PO SCH (15:21)
[2018-03-31] MEDS: PROTONIX TAB 40 MG PO SCH (15:21)
[2018-03-31] MEDS: ASPIRIN 81 MG CHEWTAB PO SCH (15:21)
[2018-03-31] MEDS: LIPITOR TAB 40 MG PO SCH (20:06)
[2018-04-01] MEDS: NORCO 5/325 MG TAB PO PRN ×3 (01:32→20:10)
[2018-04-01] MEDS: SYNTHROID 150 mcg TAB PO SCH (06:07)
[2018-04-01 06:20] LABS: BASOPHILS # (AUTO) 0.1 X10^3/uL (0.0-0.1); BASOPHILS % (AUTO) 1.3 % (0.2-1.0); EOSINOPHILS # (AUTO) 0.2 x10^3/uL (0.0-0.2); EOSINOPHILS % (AUTO) 3.4 % (0.9-2.9); HEMATOCRIT 29.2 % (42.0-54.0); HEMOGLOBIN 9.8 g/dL (13.5-18.0); LYMPHOCYTES # (AUTO) 3.8 X10^3/uL (1.3-2.9); LYMPHOCYTES % (AUTO) 56.9 % (21.0-51.0); MEAN CORPUSCULAR HEMOGLOBIN 27.1 pg (27.0-34.0); MEAN CORPUSCULAR HGB CONC 33.5 g/dL (33.0-35.0); MEAN CORPUSCULAR VOLUME 80.8 fL (80.0-100.0); MEAN PLATELET VOLUME 8.9 fL (7.4-11.0); MONOCYTES % (AUTO) 14.9 % (0.0-13.0); NEUTROPHILS # (AUTO) 1.6 x10^3/uL (2.2-4.8); NEUTROPHILS % (AUTO) 23.5 % (42.0-75.0); PLATELET COUNT 257 X10^3/uL (150.0-450.0); RED BLOOD COUNT 3.61 X10^6/uL (4.7-6.0); WHITE BLOOD COUNT 6.6 X10^3/uL (3.6-10.0)
[2018-04-01 06:26] LABS: ALANINE AMINOTRANSFERASE 22 Units/L (12-78); ALBUMIN 2.7 g/dL (3.4-5.0); ALKALINE PHOSPHATASE 165 Units/L (46-116); ASPARTATE AMINO TRANSFERASE 16 Units/L (15-37); BLOOD UREA NITROGEN 23 mg/dL (7-18); CALCIUM 9.6 mg/dL (8.5-10.1); CARBON DIOXIDE 27.7 mmol/L (21-32); CHLORIDE 102 mmol/L (98-107); COR CA(FOR HYPOALB) 10.6 mg/dL (8.5-10.1); COR NA(FOR HYPERGLY) 141 mmol/L (136-145); CREATININE 0.78 mg/dL (0.70-1.30); SODIUM 140 mmol/L (136-145); TOTAL PROTEIN 8.6 g/dL (6.4-8.2); eGFR NON BLACK RACES > 60 (>60)
[2018-04-01 07:07] LABS: BAND NEUTROPHILS % 2 % (0-10)
[2018-04-01 07:08] LABS: PLATELET MORPHOLOGY COMMENT NORMAL (NORMAL)
[2018-04-01] MEDS: ASPIRIN 81 MG CHEWTAB PO SCH (08:00)
[2018-04-01] MEDS: ZYLOPRIM PO SCH (08:00)
[2018-04-01] MEDS: FERROUS GLUCONATE PO SCH (08:00)
[2018-04-01] MEDS: VITAMIN C PO SCH (08:00)
[2018-04-01] MEDS: PROTONIX TAB 40 MG PO SCH (08:00)
[2018-04-01] MEDS: CLARITIN PO SCH (08:01)
[2018-04-01] MEDS: LIPITOR TAB 40 MG PO SCH (20:10)
[2018-04-01] MEDS: RESTORIL CAP 15 MG PO PRN (22:55)
[2018-04-02] MEDS: NORCO 5/325 MG TAB PO PRN ×2 (01:31→20:45)
[2018-04-02] MEDS: SYNTHROID 150 mcg TAB PO SCH (06:06)
[2018-04-02 06:08] LABS: ALANINE AMINOTRANSFERASE 22 Units/L (12-78); ALBUMIN 2.7 g/dL (3.4-5.0); ALKALINE PHOSPHATASE 167 Units/L (46-116); ASPARTATE AMINO TRANSFERASE 19 Units/L (15-37); BLOOD UREA NITROGEN 24 mg/dL (7-18); CALCIUM 9.3 mg/dL (8.5-10.1); CARBON DIOXIDE 27.3 mmol/L (21-32); CHLORIDE 101 mmol/L (98-107); COR CA(FOR HYPOALB) 10.3 mg/dL (8.5-10.1); CREATININE 0.82 mg/dL (0.70-1.30); SODIUM 139 mmol/L (136-145); TOTAL PROTEIN 8.5 g/dL (6.4-8.2); eGFR NON BLACK RACES > 60 (>60)
[2018-04-02 06:10] LABS: BASOPHILS # (AUTO) 0.1 X10^3/uL (0.0-0.1); BASOPHILS % (AUTO) 0.9 % (0.2-1.0); EOSINOPHILS # (AUTO) 0.2 x10^3/uL (0.0-0.2); EOSINOPHILS % (AUTO) 3.5 % (0.9-2.9); HEMATOCRIT 28.7 % (42.0-54.0); HEMOGLOBIN 9.7 g/dL (13.5-18.0); LYMPHOCYTES # (AUTO) 2.9 X10^3/uL (1.3-2.9); MEAN CORPUSCULAR HEMOGLOBIN 27.1 pg (27.0-34.0); MEAN CORPUSCULAR HGB CONC 33.7 g/dL (33.0-35.0); MEAN CORPUSCULAR VOLUME 80.4 fL (80.0-100.0); MEAN PLATELET VOLUME 9.2 fL (7.4-11.0); MONOCYTES # (AUTO) 1.7 x10^3/uL (0.3-0.8); MONOCYTES % (AUTO) 23.6 % (0.0-13.0); NEUTROPHILS # (AUTO) 2.2 x10^3/uL (2.2-4.8); PLATELET COUNT 205 X10^3/uL (150.0-450.0); RED BLOOD COUNT 3.57 X10^6/uL (4.7-6.0); RED CELL DISTRIBUTION WIDTH 16.2 % (11.6-16.5); WHITE BLOOD COUNT 7.1 X10^3/uL (3.6-10.0)
[2018-04-02 06:54] LABS: PLATELET MORPHOLOGY COMMENT NORMAL (NORMAL)
[2018-04-02] MEDS: ASPIRIN 81 MG CHEWTAB PO SCH (09:05)
[2018-04-02] MEDS: CLARITIN PO SCH (09:05)
[2018-04-02] MEDS: VITAMIN C PO SCH (09:06)
[2018-04-02] MEDS: PROTONIX TAB 40 MG PO SCH (09:06)
[2018-04-02] MEDS: FERROUS GLUCONATE PO SCH (09:06)
[2018-04-02] MEDS: ZYLOPRIM PO SCH (09:07)
[2018-04-02] MEDS: LIPITOR TAB 40 MG PO SCH (20:44)
[2018-04-02] MEDS: RESTORIL CAP 15 MG PO PRN (20:59)
[2018-04-03 06:28] LABS: BASOPHILS # (AUTO) 0.1 X10^3/uL (0.0-0.1); EOSINOPHILS # (AUTO) 0.2 x10^3/uL (0.0-0.2); EOSINOPHILS % (AUTO) 1.5 % (0.9-2.9); HEMATOCRIT 30.8 % (42.0-54.0); HEMOGLOBIN 10.4 g/dL (13.5-18.0); LYMPHOCYTES # (AUTO) 4.8 X10^3/uL (1.3-2.9); LYMPHOCYTES % (AUTO) 44.4 % (21.0-51.0); MEAN CORPUSCULAR HEMOGLOBIN 27.2 pg (27.0-34.0); MEAN CORPUSCULAR HGB CONC 33.8 g/dL (33.0-35.0); MEAN CORPUSCULAR VOLUME 80.5 fL (80.0-100.0); MEAN PLATELET VOLUME 9.7 fL (7.4-11.0); MONOCYTES # (AUTO) 2.6 x10^3/uL (0.3-0.8); MONOCYTES % (AUTO) 23.8 % (0.0-13.0); NEUTROPHILS # (AUTO) 3.2 x10^3/uL (2.2-4.8); NEUTROPHILS % (AUTO) 29.3 % (42.0-75.0); PLATELET COUNT 150 X10^3/uL (150.0-450.0); RED BLOOD COUNT 3.82 X10^6/uL (4.7-6.0); RED CELL DISTRIBUTION WIDTH 16.3 % (11.6-16.5); WHITE BLOOD COUNT 10.9 X10^3/uL (3.6-10.0)
[2018-04-03 06:44] LABS: ALANINE AMINOTRANSFERASE 32 Units/L (12-78); ALBUMIN 2.9 g/dL (3.4-5.0); ALKALINE PHOSPHATASE 177 Units/L (46-116); ASPARTATE AMINO TRANSFERASE 30 Units/L (15-37); BLOOD UREA NITROGEN 18 mg/dL (7-18); CALCIUM 9.3 mg/dL (8.5-10.1); CARBON DIOXIDE 24.4 mmol/L (21-32); COR CA(FOR HYPOALB) 10.2 mg/dL (8.5-10.1); CREATININE 0.88 mg/dL (0.70-1.30); TOTAL PROTEIN 9.1 g/dL (6.4-8.2); eGFR NON BLACK RACES > 60 (>60)
[2018-04-03 06:51] LABS: CHLORIDE 99 mmol/L (98-107); SODIUM 137 mmol/L (136-145)
--- NOTE | 2018-04-03 07:14 | RAD ---
HISTORY: Lung cancer, COPD Study: Chest AP portable Comparison: 03/31/2018 Findings: The heart is within normal limits in size. The gabriella are normal. There is some pleuro parenchymal scarring in the right lung base. There is also a poorly defined rounded area of increased density just above the right hemidiaphragm likely representing the patient's known posterior right lung mass. No acute alveolar infiltrates or pleural effusions are identified. IMPRESSION: No significant change from the prior examination Reported By:
[2018-04-03 07:31] LABS: PLATELET MORPHOLOGY COMMENT NORMAL (NORMAL)
[2018-04-03] MEDS: ASPIRIN 81 MG CHEWTAB PO SCH (08:30)
[2018-04-03] MEDS: SYNTHROID 150 mcg TAB PO SCH (08:30)
[2018-04-03] MEDS: VITAMIN C PO SCH (08:30)
[2018-04-03] MEDS: FERROUS GLUCONATE PO SCH (08:30)
[2018-04-03] MEDS: ZYLOPRIM PO SCH (08:30)
[2018-04-03] MEDS: CLARITIN PO SCH (08:30)
[2018-04-03] MEDS: PROTONIX TAB 40 MG PO SCH (08:30)
--- NOTE | 2018-04-03 17:25 | PCM.PROG ---
Progress Note - Progress Note for Day of Date of Exam: 04/03/18 - Subjective Subjective: 57 BM WITH HISTORY OF THROAT CANCER, GENERALIZED WEAKNESS AND ADULT FAILURE TO THRIVE, BACK TRANSFER FROM [facility] IN [facility] [place] FOLLOWING EXTENDED HOSPITALIZATION. CASE MANAGEMENT CONSULTED FOR PERMANENT [facility] PLACEMENT. PT WBC THIS AM 10.9, CXR WITH NO ACUTE INFILTRATES OR EFFUSION. CONTINUE AM LABS, CONTINUED HOME MEDICATION AND PRN RESP SUCTION AND DUO NEBS. - Past Medical Family Social History Past Med/Fam/Surg Hx: No changes since H&P Allergies: Allergies No Known Drug Allergies Allergy (Verified 03/08/18 18:03) - Review of Systems ROS: No change since H&P - Vital Signs and I&O's Vital Signs: Temperature 98.3 F Pulse Rate [Left Radial] 95 Respiratory Rate 18 Blood Pressure [Left Arm] 121/75 Blood Pressure [Right Arm] 134/78 Blood Pressure 124/82 O2 Sat by Pulse Oximetry 100 Intake and Output: Intake & Output 04/01/18 04/02/18 04/03/18 04/04/18 11:59 11:59 11:59 11:59 Intake Total 2990 / 2990 1330 / 1330 1860 / 1860 1180 / 1180 Output Total 1425 / 1425 1625 / 1625 1200 / 1200 400 / 400 Balance 1565 / 1565 -295 / -295 660 / 660 780 / 780 - Physical Exam Oriented: Normal Eyes: Normal Ear: Normal Nose: Normal Throat: Normal, Other (TRACH STOMA) Respiratory: Diminished, Rhonchi Cardiovascular: Normal : Normal Auscultation: Bowel Sounds: Normal Tenderness: Normal Skin: Decreased Turgur Musculoskeletal: Right, Left, Leg, Back:Lumbar, Sensory Deficit, Instability Mood Description: Calm Speech Pattern: Trach(not ventilated) - Laboratory and Diagnostics Result Diagrams: 04/03/18 06:09 04/03/18 06:09 Labs: Laboratory WBC 10.9 X10^3/uL (3.6-10.0) H 04/03/18 06:09 RBC 3.82 X10^6/uL (4.7-6.0) L 04/03/18 06:09 Hgb 10.4 g/dL (13.5-18.0) L 04/03/18 06:09 Hct 30.8 % (42.0-54.0) L 04/03/18 06:09 MCV 80.5 fL (80.0-100.0) 04/03/18 06:09 MCH 27.2 pg (27.0-34.0) 04/03/18 06:09 MCHC 33.8 g/dL (33.0-35.0) 04/03/18 06:09 RDW 16.3 % (11.6-16.5) 04/03/18 06:09 Plt Count 150 X10^3/uL (150.0-450.0) 04/03/18 06:09 Plt Count Comment Adequate (ADEQUATE) 04/03/18 06:09 MPV 9.7 fL (7.4-11.0) 04/03/18 06:09 Neut % (Auto) 29.3 % (42.0-75.0) L 04/03/18 06:09 Lymph % (Auto) 44.4 % (21.0-51.0) 04/03/18 06:09 [place] % (Auto) 23.8 % (0.0-13.0) H 04/03/18 06:09 Eos % (Auto) 1.5 % (0.9-2.9) 04/03/18 06:09 Baso % (Auto) 1.0 % (0.2-1.0) 04/03/18 06:09 Neut # (Auto) 3.2 x10^3/uL (2.2-4.8) 04/03/18 06:09 Lymph # (Auto) 4.8 X10^3/uL (1.3-2.9) H 04/03/18 06:09 [place] # (Auto) 2.6 x10^3/uL (0.3-0.8) H 04/03/18 06:09 Eos # (Auto) 0.2 x10^3/uL (0.0-0.2) 04/03/18 06:09 Baso # (Auto) 0.1 X10^3/uL (0.0-0.1) 04/03/18 06:09 Absolute Nucleated RBC 0.2 /100WBC 04/03/18 06:09 Total Counted 100 04/03/18 06:09 Neutrophils % (Manual) 50 % (39-76) 04/03/18 06:09 Band Neutrophils % 2 % (0-10) 04/01/18 05:36 Lymphocytes % (Manual) 31 % (13-43) 04/03/18 06:09 Monocytes % (Manual) 16 % (4-9) H 04/03/18 06:09 Eosinophils % (Manual) 3 % (0-6) 04/03/18 06:09 Plt Morphology Comment Normal (NORMAL) 04/03/18 06:09 RBC Morphology Normal (NORMAL) 04/03/18 06:09 Sodium 137 mmol/L (136-145) 04/03/18 06:09 Corrected Sodium TNP 04/03/18 06:09 Potassium 4.5 mmol/L (3.5-5.1) 04/03/18 06:09 Chloride 99 mmol/L (98-107) 04/03/18 06:09 Carbon Dioxide 24.4 mmol/L (21-32) 04/03/18 06:09 BUN 18 mg/dL (7-18) 04/03/18 06:09 Creatinine 0.88 mg/dL (0.70-1.30) 04/03/18 06:09 Est GFR (MDRD) Af Amer > 60 (>60) 04/03/18 06:09 Est GFR (MDRD) Non-Af > 60 (>60) 04/03/18 06:09 Glucose 94 mg/dL (65-99) 04/03/18 06:09 Calcium 9.3 mg/dL (8.5-10.1) 04/03/18 06:09 Corrected Calcium 10.2 mg/dL (8.5-10.1) H 04/03/18 06:09 Total Bilirubin 0.10 mg/dL (0.2-1.0) L 04/03/18 06:09 AST 30 Units/L (15-37) 04/03/18 06:09 ALT 32 Units/L (12-78) 04/03/18 06:09 Alkaline Phosphatase 177 Units/L (46-116) H 04/03/18 06:09 Total Protein 9.1 g/dL (6.4-8.2) H 04/03/18 06:09 Albumin 2.9 g/dL (3.4-5.0) L 04/03/18 06:09 Globulin 6.2 g/dL (2.5-4.5) H 04/03/18 06:09 Albumin/Globulin Ratio 0.5 Ratio (1.1-2.1) L 04/03/18 06:09 - Plan (1) Weakness Status: Acute Plan: ROUTINE LABS CBC CMP. CXR ON ADMISSION. VERIFY AND RESUME HOME MEDICATION. PRN RESP, PUREED DIET. CHOKING PRECAUTIONS (2) Adult failure to thrive Status: Acute (3) Dysphagia Status: Inactive (4) GERD (gastroesophageal reflux disease) Status: Chronic (5) CVD (cardiovascular disease) Status: Chronic (6) Hypertension Status: Chronic (7) History of throat cancer Status: Acute
[2018-04-03] MEDS: LIPITOR TAB 40 MG PO SCH (20:12)
[2018-04-03] MEDS: RESTORIL CAP 15 MG PO PRN (20:12)
[2018-04-03] MEDS: NORCO 5/325 MG TAB PO PRN (20:12)
[2018-04-04] MEDS: NORCO 5/325 MG TAB PO PRN ×2 (03:06→20:43)
[2018-04-04 06:15] LABS: BASOPHILS # (AUTO) 0.1 X10^3/uL (0.0-0.1); BASOPHILS % (AUTO) 1.2 % (0.2-1.0); EOSINOPHILS # (AUTO) 0.2 x10^3/uL (0.0-0.2); HEMATOCRIT 26.5 % (42.0-54.0); LYMPHOCYTES # (AUTO) 2.3 X10^3/uL (1.3-2.9); LYMPHOCYTES % (AUTO) 44.7 % (21.0-51.0); MEAN CORPUSCULAR HEMOGLOBIN 27.2 pg (27.0-34.0); MEAN CORPUSCULAR HGB CONC 34.1 g/dL (33.0-35.0); MEAN CORPUSCULAR VOLUME 79.8 fL (80.0-100.0); MEAN PLATELET VOLUME 9.5 fL (7.4-11.0); MONOCYTES # (AUTO) 1.3 x10^3/uL (0.3-0.8); MONOCYTES % (AUTO) 26.2 % (0.0-13.0); NEUTROPHILS # (AUTO) 1.2 x10^3/uL (2.2-4.8); NEUTROPHILS % (AUTO) 23.9 % (42.0-75.0); PLATELET COUNT 177 X10^3/uL (150.0-450.0); RED BLOOD COUNT 3.32 X10^6/uL (4.7-6.0); RED CELL DISTRIBUTION WIDTH 16.1 % (11.6-16.5); WHITE BLOOD COUNT 5.1 X10^3/uL (3.6-10.0)
[2018-04-04 06:27] LABS: ALANINE AMINOTRANSFERASE 28 Units/L (12-78); ALBUMIN 2.6 g/dL (3.4-5.0); ALKALINE PHOSPHATASE 146 Units/L (46-116); ASPARTATE AMINO TRANSFERASE 22 Units/L (15-37); BLOOD UREA NITROGEN 20 mg/dL (7-18); CALCIUM 9.1 mg/dL (8.5-10.1); CARBON DIOXIDE 25.5 mmol/L (21-32); CHLORIDE 102 mmol/L (98-107); COR CA(FOR HYPOALB) 10.2 mg/dL (8.5-10.1); COR NA(FOR HYPERGLY) 138 mmol/L (136-145); CREATININE 0.84 mg/dL (0.70-1.30); SODIUM 137 mmol/L (136-145); TOTAL PROTEIN 8.3 g/dL (6.4-8.2); eGFR NON BLACK RACES > 60 (>60)
[2018-04-04] MEDS: SYNTHROID 150 mcg TAB PO SCH (06:39)
[2018-04-04] MEDS: FERROUS GLUCONATE PO SCH (09:23)
[2018-04-04] MEDS: CLARITIN PO SCH (09:23)
[2018-04-04] MEDS: ASPIRIN 81 MG CHEWTAB PO SCH (09:23)
[2018-04-04] MEDS: VITAMIN C PO SCH (09:23)
[2018-04-04] MEDS: ZYLOPRIM PO SCH (09:23)
[2018-04-04] MEDS: PROTONIX TAB 40 MG PO SCH (09:24)
--- NOTE | 2018-04-04 17:11 | PCM.PROG ---
Progress Note - Progress Note for Day of Date of Exam: 04/04/18 - Subjective Subjective: 57 BM WITH HISTORY OF THROAT CANCER, GENERALIZED WEAKNESS AND ADULT FAILURE TO THRIVE, BACK TRANSFER FROM [facility] IN [facility] FOLLOWING EXTENDED HOSPITALIZATION. CASE MANAGEMENT CONSULTED FOR PERMANENT [facility] PLACEMENT.CONTINUE AM LABS, CONTINUED HOME MEDICATION AND PRN RESP SUCTION AND DUO NEBS. - Past Medical Family Social History Past Med/Fam/Surg Hx: No changes since H&P Allergies: Allergies No Known Drug Allergies Allergy (Verified 03/08/18 18:03) - Review of Systems ROS: No change since H&P - Vital Signs and I&O's Vital Signs: Temperature 97.9 F Pulse Rate [Left Radial] 90 Respiratory Rate 18 Blood Pressure [Left Arm] 130/87 Blood Pressure [Right Arm] 134/78 Blood Pressure 124/82 O2 Sat by Pulse Oximetry 99 Intake and Output: Intake & Output 04/02/18 04/03/18 04/04/18 04/05/18 11:59 11:59 11:59 11:59 Intake Total 1330 / 1330 1860 / 1860 2120 / 2120 1040 / 1040 Output Total 1625 / 1625 1200 / 1200 1700 / 1700 400 / 400 Balance -295 / -295 660 / 660 420 / 420 640 / 640 - Physical Exam Oriented: Normal Eyes: Normal Ear: Normal Nose: Normal Throat: Normal, Other (TRACH STOMA) Respiratory: Diminished, Rhonchi Cardiovascular: Normal : Normal Auscultation: Bowel Sounds: Normal Tenderness: Normal Skin: Decreased Turgur Musculoskeletal: Right, Left, Leg, Back:Lumbar, Sensory Deficit, Instability Mood Description: Calm Speech Pattern: Aphasic - Laboratory and Diagnostics Result Diagrams: 04/04/18 05:35 04/04/18 05:35 Labs: Laboratory WBC 5.1 X10^3/uL (3.6-10.0) 04/04/18 05:35 RBC 3.32 X10^6/uL (4.7-6.0) L 04/04/18 05:35 Hgb 9.0 g/dL (13.5-18.0) L 04/04/18 05:35 Hct 26.5 % (42.0-54.0) L 04/04/18 05:35 MCV 79.8 fL (80.0-100.0) L 04/04/18 05:35 MCH 27.2 pg (27.0-34.0) 04/04/18 05:35 MCHC 34.1 g/dL (33.0-35.0) 04/04/18 05:35 RDW 16.1 % (11.6-16.5) 04/04/18 05:35 Plt Count 177 X10^3/uL (150.0-450.0) 04/04/18 05:35 Plt Count Comment Adequate (ADEQUATE) 04/03/18 06:09 MPV 9.5 fL (7.4-11.0) 04/04/18 05:35 Neut % (Auto) 23.9 % (42.0-75.0) L 04/04/18 05:35 Lymph % (Auto) 44.7 % (21.0-51.0) 04/04/18 05:35 [place] % (Auto) 26.2 % (0.0-13.0) H 04/04/18 05:35 Eos % (Auto) 4.0 % (0.9-2.9) H 04/04/18 05:35 Baso % (Auto) 1.2 % (0.2-1.0) H 04/04/18 05:35 Neut # (Auto) 1.2 x10^3/uL (2.2-4.8) L 04/04/18 05:35 Lymph # (Auto) 2.3 X10^3/uL (1.3-2.9) 04/04/18 05:35 [place] # (Auto) 1.3 x10^3/uL (0.3-0.8) H 04/04/18 05:35 Eos # (Auto) 0.2 x10^3/uL (0.0-0.2) 04/04/18 05:35 Baso # (Auto) 0.1 X10^3/uL (0.0-0.1) 04/04/18 05:35 Absolute Nucleated RBC 0.2 /100WBC 04/04/18 05:35 Total Counted 100 04/03/18 06:09 Neutrophils % (Manual) 50 % (39-76) 04/03/18 06:09 Band Neutrophils % 2 % (0-10) 04/01/18 05:36 Lymphocytes % (Manual) 31 % (13-43) 04/03/18 06:09 Monocytes % (Manual) 16 % (4-9) H 04/03/18 06:09 Eosinophils % (Manual) 3 % (0-6) 04/03/18 06:09 Nucleated RBCs Cancelled 04/04/18 05:35 Atypical Lymphocytes Cancelled 04/04/18 05:35 Blast Cells Cancelled 04/04/18 05:35 Smudge Cells Cancelled 04/04/18 05:35 Toxic Granulation Cancelled 04/04/18 05:35 Dohle Bodies Cancelled 04/04/18 05:35 Jose Rods Cancelled 04/04/18 05:35 Plt Clumps, EDTA Cancelled 04/04/18 05:35 Giant Platelets Cancelled 04/04/18 05:35 Plt Morphology Comment Normal (NORMAL) 04/03/18 06:09 RBC Morphology Normal (NORMAL) 04/03/18 06:09 Dimorphic RBCs Cancelled 04/04/18 05:35 Polychromasia Cancelled 04/04/18 05:35 Hypochromasia Cancelled 04/04/18 05:35 Poikilocytosis Cancelled 04/04/18 05:35 Basophilic Stippling Cancelled 04/04/18 05:35 Anisocytosis Cancelled 04/04/18 05:35 Microcytosis Cancelled 04/04/18 05:35 Macrocytosis Cancelled 04/04/18 05:35 Spherocytes Cancelled 04/04/18 05:35 Pappenheimer Bodies Cancelled 04/04/18 05:35 Sickle Cells Cancelled 04/04/18 05:35 Target Cells Cancelled 04/04/18 05:35 Tear Drop Cells Cancelled 04/04/18 05:35 Ovalocytes Cancelled 04/04/18 05:35 Stomatocytes Cancelled 04/04/18 05:35 Helmet Cells Cancelled 04/04/18 05:35 [place] Bodies Cancelled 04/04/18 05:35 [place] Rings Cancelled 04/04/18 05:35 [place] Cells Cancelled 04/04/18 05:35 Crenated Cell Cancelled 04/04/18 05:35 Acanthocytes (Spur) Cancelled 04/04/18 05:35 Rouleaux Cancelled 04/04/18 05:35 Schistocytes Cancelled 04/04/18 05:35 Sodium 137 mmol/L (136-145) 04/04/18 05:35 Corrected Sodium 138 mmol/L (136-145) 04/04/18 05:35 Potassium 3.8 mmol/L (3.5-5.1) 04/04/18 05:35 Chloride 102 mmol/L (98-107) 04/04/18 05:35 Carbon Dioxide 25.5 mmol/L (21-32) 04/04/18 05:35 BUN 20 mg/dL (7-18) H 04/04/18 05:35 Creatinine 0.84 mg/dL (0.70-1.30) 04/04/18 05:35 Est GFR (MDRD) Af Amer > 60 (>60) 04/04/18 05:35 Est GFR (MDRD) Non-Af > 60 (>60) 04/04/18 05:35 Glucose 121 mg/dL (65-99) H 04/04/18 05:35 Calcium 9.1 mg/dL (8.5-10.1) 04/04/18 05:35 Corrected Calcium 10.2 mg/dL (8.5-10.1) H 04/04/18 05:35 Total Bilirubin 0.10 mg/dL (0.2-1.0) L 04/04/18 05:35 AST 22 Units/L (15-37) 04/04/18 05:35 ALT 28 Units/L (12-78) 04/04/18 05:35 Alkaline Phosphatase 146 Units/L (46-116) H 04/04/18 05:35 Total Protein 8.3 g/dL (6.4-8.2) H 04/04/18 05:35 Albumin 2.6 g/dL (3.4-5.0) L 04/04/18 05:35 Globulin 5.7 g/dL (2.5-4.5) H 04/04/18 05:35 Albumin/Globulin Ratio 0.5 Ratio (1.1-2.1) L 04/04/18 05:35 - Plan (1) Weakness Status: Acute Plan: ROUTINE LABS CBC CMP. CXR ON ADMISSION. VERIFY AND RESUME HOME MEDICATION. PRN RESP, PUREED DIET. CHOKING PRECAUTIONS (2) Adult failure to thrive Status: Acute (3) Dysphagia Status: Inactive (4) GERD (gastroesophageal reflux disease) Status: Chronic (5) CVD (cardiovascular disease) Status: Chronic (6) Hypertension Status: Chronic (7) History of throat cancer Status: Acute
[2018-04-04] MEDS: RESTORIL CAP 15 MG PO PRN (20:43)
[2018-04-04] MEDS: LIPITOR TAB 40 MG PO SCH (20:43)
[2018-04-05] MEDS: NORCO 5/325 MG TAB PO PRN ×4 (02:23→20:26)
[2018-04-05] MEDS: SYNTHROID 150 mcg TAB PO SCH (06:00)
[2018-04-05 06:35] LABS: BASOPHILS # (AUTO) 0.1 X10^3/uL (0.0-0.1); BASOPHILS % (AUTO) 0.7 % (0.2-1.0); EOSINOPHILS # (AUTO) 0.3 x10^3/uL (0.0-0.2); EOSINOPHILS % (AUTO) 2.9 % (0.9-2.9); HEMATOCRIT 25.6 % (42.0-54.0); HEMOGLOBIN 8.7 g/dL (13.5-18.0); LYMPHOCYTES # (AUTO) 3.3 X10^3/uL (1.3-2.9); LYMPHOCYTES % (AUTO) 37.1 % (21.0-51.0); MEAN CORPUSCULAR HEMOGLOBIN 27.3 pg (27.0-34.0); MEAN CORPUSCULAR HGB CONC 33.8 g/dL (33.0-35.0); MEAN CORPUSCULAR VOLUME 80.7 fL (80.0-100.0); MEAN PLATELET VOLUME 9.5 fL (7.4-11.0); MONOCYTES % (AUTO) 22.7 % (0.0-13.0); NEUTROPHILS # (AUTO) 3.3 x10^3/uL (2.2-4.8); NEUTROPHILS % (AUTO) 36.6 % (42.0-75.0); PLATELET COUNT 176 X10^3/uL (150.0-450.0); RED BLOOD COUNT 3.17 X10^6/uL (4.7-6.0); RED CELL DISTRIBUTION WIDTH 16.5 % (11.6-16.5)
[2018-04-05 06:44] LABS: ALANINE AMINOTRANSFERASE 24 Units/L (12-78); ALBUMIN 2.5 g/dL (3.4-5.0); ALKALINE PHOSPHATASE 144 Units/L (46-116); ASPARTATE AMINO TRANSFERASE 25 Units/L (15-37); BLOOD UREA NITROGEN 19 mg/dL (7-18); CALCIUM 9.1 mg/dL (8.5-10.1); CARBON DIOXIDE 25.3 mmol/L (21-32); CHLORIDE 103 mmol/L (98-107); COR CA(FOR HYPOALB) 10.3 mg/dL (8.5-10.1); CREATININE 0.85 mg/dL (0.70-1.30); SODIUM 137 mmol/L (136-145); TOTAL PROTEIN 8.3 g/dL (6.4-8.2); eGFR NON BLACK RACES > 60 (>60)
[2018-04-05 07:07] LABS: BAND NEUTROPHILS % 3 % (0-10); PLATELET MORPHOLOGY COMMENT NORMAL (NORMAL)
[2018-04-05] MEDS: FERROUS GLUCONATE PO SCH (08:53)
[2018-04-05] MEDS: ASPIRIN 81 MG CHEWTAB PO SCH (08:53)
[2018-04-05] MEDS: ZYLOPRIM PO SCH (08:53)
[2018-04-05] MEDS: PROTONIX TAB 40 MG PO SCH (08:53)
[2018-04-05] MEDS: CLARITIN PO SCH (08:53)
[2018-04-05] MEDS: VITAMIN C PO SCH (08:53)
--- NOTE | 2018-04-05 17:55 | PCM.PROG ---
Progress Note - Progress Note for Day of Date of Exam: 04/05/18 - Subjective Subjective: 57 BM WITH HISTORY OF THROAT CANCER, GENERALIZED WEAKNESS AND ADULT FAILURE TO THRIVE, BACK TRANSFER FROM [facility] IN [facility] FOLLOWING EXTENDED HOSPITALIZATION. CASE MANAGEMENT CONSULTED FOR PERMANENT [facility] PLACEMENT. STABLE BUN 19, CREAT 0.85 THIS AM. HGB 8.7 WILL ADD ANEMIA PANEL. CONTINUE AM LABS, CONTINUED HOME MEDICATION AND PRN RESP SUCTION AND DUO NEBS. - Past Medical Family Social History Past Med/Fam/Surg Hx: No changes since H&P Allergies: Allergies No Known Drug Allergies Allergy (Verified 03/08/18 18:03) - Review of Systems ROS: No change since H&P - Vital Signs and I&O's Vital Signs: Temperature 100.7 F Pulse Rate [Left Radial] 120 Respiratory Rate 20 Blood Pressure [Left Arm] 118/75 Blood Pressure [Right Arm] 134/78 Blood Pressure 124/82 O2 Sat by Pulse Oximetry 98 Intake and Output: Intake & Output 04/03/18 04/04/18 04/05/18 04/06/18 11:59 11:59 11:59 11:59 Intake Total 1860 / 1860 2120 / 2120 1962 / 1962 490 / 490 Output Total 1200 / 1200 1700 / 1700 1650 / 1650 650 / 650 Balance 660 / 660 420 / 420 313 / 313 -160 / -160 - Physical Exam Oriented: Normal Eyes: Normal Ear: Normal Nose: Normal Throat: Normal, Other (TRACH STOMA) Respiratory: Diminished, Rhonchi Cardiovascular: Normal : Normal Auscultation: Bowel Sounds: Normal Tenderness: Normal Skin: Decreased Turgur Musculoskeletal: Right, Left, Leg, Back:Lumbar, Sensory Deficit, Instability Mood Description: Calm Speech Pattern: Clear, Appropriate - Laboratory and Diagnostics Result Diagrams: 04/05/18 05:12 04/05/18 05:12 Labs: Laboratory WBC 9.0 X10^3/uL (3.6-10.0) 04/05/18 05:12 RBC 3.17 X10^6/uL (4.7-6.0) L 04/05/18 05:12 Hgb 8.7 g/dL (13.5-18.0) L 04/05/18 05:12 Hct 25.6 % (42.0-54.0) L 04/05/18 05:12 MCV 80.7 fL (80.0-100.0) 04/05/18 05:12 MCH 27.3 pg (27.0-34.0) 04/05/18 05:12 MCHC 33.8 g/dL (33.0-35.0) 04/05/18 05:12 RDW 16.5 % (11.6-16.5) 04/05/18 05:12 Plt Count 176 X10^3/uL (150.0-450.0) 04/05/18 05:12 Plt Count Comment Adequate (ADEQUATE) 04/05/18 05:12 MPV 9.5 fL (7.4-11.0) 04/05/18 05:12 Neut % (Auto) 36.6 % (42.0-75.0) L 04/05/18 05:12 Lymph % (Auto) 37.1 % (21.0-51.0) 04/05/18 05:12 [place] % (Auto) 22.7 % (0.0-13.0) H 04/05/18 05:12 Eos % (Auto) 2.9 % (0.9-2.9) 04/05/18 05:12 Baso % (Auto) 0.7 % (0.2-1.0) 04/05/18 05:12 Neut # (Auto) 3.3 x10^3/uL (2.2-4.8) 04/05/18 05:12 Lymph # (Auto) 3.3 X10^3/uL (1.3-2.9) H 04/05/18 05:12 [place] # (Auto) 2.0 x10^3/uL (0.3-0.8) H 04/05/18 05:12 Eos # (Auto) 0.3 x10^3/uL (0.0-0.2) H 04/05/18 05:12 Baso # (Auto) 0.1 X10^3/uL (0.0-0.1) 04/05/18 05:12 Absolute Nucleated RBC 0.1 /100WBC 04/05/18 05:12 Total Counted 100 04/05/18 05:12 Neutrophils % (Manual) 45 % (39-76) 04/05/18 05:12 Band Neutrophils % 3 % (0-10) 04/05/18 05:12 Lymphocytes % (Manual) 36 % (13-43) 04/05/18 05:12 Monocytes % (Manual) 16 % (4-9) H 04/05/18 05:12 Eosinophils % (Manual) 3 % (0-6) 04/03/18 06:09 Nucleated RBCs Cancelled 04/04/18 05:35 Atypical Lymphocytes Cancelled 04/04/18 05:35 Blast Cells Cancelled 04/04/18 05:35 Smudge Cells Cancelled 04/04/18 05:35 Toxic Granulation Cancelled 04/04/18 05:35 Dohle Bodies Cancelled 04/04/18 05:35 Jose Rods Cancelled 04/04/18 05:35 Plt Clumps, EDTA Cancelled 04/04/18 05:35 Giant Platelets Cancelled 04/04/18 05:35 Plt Morphology Comment Normal (NORMAL) 04/05/18 05:12 RBC Morphology Normal (NORMAL) 04/05/18 05:12 Dimorphic RBCs Cancelled 04/04/18 05:35 Polychromasia Cancelled 04/04/18 05:35 Hypochromasia Cancelled 04/04/18 05:35 Poikilocytosis Cancelled 04/04/18 05:35 Basophilic Stippling Cancelled 04/04/18 05:35 Anisocytosis Cancelled 04/04/18 05:35 Microcytosis Cancelled 04/04/18 05:35 Macrocytosis Cancelled 04/04/18 05:35 Spherocytes Cancelled 04/04/18 05:35 Pappenheimer Bodies Cancelled 04/04/18 05:35 Sickle Cells Cancelled 04/04/18 05:35 Target Cells Cancelled 04/04/18 05:35 Tear Drop Cells Cancelled 04/04/18 05:35 Ovalocytes Cancelled 04/04/18 05:35 Stomatocytes Cancelled 04/04/18 05:35 Helmet Cells Cancelled 04/04/18 05:35 [place] Bodies Cancelled 04/04/18 05:35 [place] Rings Cancelled 04/04/18 05:35 [place] Cells Cancelled 04/04/18 05:35 Crenated Cell Cancelled 04/04/18 05:35 Acanthocytes (Spur) Cancelled 04/04/18 05:35 Rouleaux Cancelled 04/04/18 05:35 Schistocytes Cancelled 04/04/18 05:35 Sodium 137 mmol/L (136-145) 04/05/18 05:12 Corrected Sodium TNP 04/05/18 05:12 Potassium 4.2 mmol/L (3.5-5.1) 04/05/18 05:12 Chloride 103 mmol/L (98-107) 04/05/18 05:12 Carbon Dioxide 25.3 mmol/L (21-32) 04/05/18 05:12 BUN 19 mg/dL (7-18) H 04/05/18 05:12 Creatinine 0.85 mg/dL (0.70-1.30) 04/05/18 05:12 Est GFR (MDRD) Af Amer > 60 (>60) 04/05/18 05:12 Est GFR (MDRD) Non-Af > 60 (>60) 04/05/18 05:12 Glucose 99 mg/dL (65-99) 04/05/18 05:12 Calcium 9.1 mg/dL (8.5-10.1) 04/05/18 05:12 Corrected Calcium 10.3 mg/dL (8.5-10.1) H 04/05/18 05:12 Total Bilirubin 0.10 mg/dL (0.2-1.0) L 04/05/18 05:12 AST 25 Units/L (15-37) 04/05/18 05:12 ALT 24 Units/L (12-78) 04/05/18 05:12 Alkaline Phosphatase 144 Units/L (46-116) H 04/05/18 05:12 Total Protein 8.3 g/dL (6.4-8.2) H 04/05/18 05:12 Albumin 2.5 g/dL (3.4-5.0) L 04/05/18 05:12 Globulin 5.8 g/dL (2.5-4.5) H 04/05/18 05:12 Albumin/Globulin Ratio 0.4 Ratio (1.1-2.1) L 04/05/18 05:12 - Plan (1) Weakness Status: Acute Plan: ROUTINE LABS CBC CMP. CXR ON ADMISSION. VERIFY AND RESUME HOME MEDICA TION. PRN RESP, PUREED DIET. CHOKING PRECAUTIONS (2) Adult failure to thrive Status: Acute (3) Dysphagia Status: Inactive (4) GERD (gastroesophageal reflux disease) Status: Chronic (5) CVD (cardiovascular disease) Status: Chronic (6) Hypertension Status: Chronic (7) History of throat cancer Status: Acute
[2018-04-05] MEDS: LIPITOR TAB 40 MG PO SCH (20:25)
[2018-04-05] MEDS: RESTORIL CAP 15 MG PO PRN (20:26)
[2018-04-06] MEDS: NORCO 5/325 MG TAB PO PRN ×2 (04:30→13:22)
[2018-04-06] MEDS: SYNTHROID 150 mcg TAB PO SCH (06:02)
[2018-04-06 07:11] LABS: BASOPHILS # (AUTO) 0.1 X10^3/uL (0.0-0.1); BASOPHILS % (AUTO) 1.2 % (0.2-1.0); EOSINOPHILS # (AUTO) 0.2 x10^3/uL (0.0-0.2); EOSINOPHILS % (AUTO) 2.7 % (0.9-2.9); HEMATOCRIT 25.8 % (42.0-54.0); HEMOGLOBIN 8.7 g/dL (13.5-18.0); LYMPHOCYTES # (AUTO) 2.4 X10^3/uL (1.3-2.9); LYMPHOCYTES % (AUTO) 37.6 % (21.0-51.0); MEAN CORPUSCULAR HGB CONC 33.9 g/dL (33.0-35.0); MEAN CORPUSCULAR VOLUME 79.7 fL (80.0-100.0); MEAN PLATELET VOLUME 9.1 fL (7.4-11.0); MONOCYTES # (AUTO) 1.6 x10^3/uL (0.3-0.8); MONOCYTES % (AUTO) 25.7 % (0.0-13.0); NEUTROPHILS # (AUTO) 2.1 x10^3/uL (2.2-4.8); NEUTROPHILS % (AUTO) 32.8 % (42.0-75.0); PLATELET COUNT 210 X10^3/uL (150.0-450.0); RED BLOOD COUNT 3.23 X10^6/uL (4.7-6.0); RED CELL DISTRIBUTION WIDTH 16.2 % (11.6-16.5); WHITE BLOOD COUNT 6.4 X10^3/uL (3.6-10.0)
[2018-04-06 07:27] LABS: ALANINE AMINOTRANSFERASE 23 Units/L (12-78); ALBUMIN 2.4 g/dL (3.4-5.0); ALKALINE PHOSPHATASE 138 Units/L (46-116); ASPARTATE AMINO TRANSFERASE 19 Units/L (15-37); BLOOD UREA NITROGEN 17 mg/dL (7-18); CALCIUM 8.6 mg/dL (8.5-10.1); CARBON DIOXIDE 24.2 mmol/L (21-32); CHLORIDE 102 mmol/L (98-107); COR CA(FOR HYPOALB) 9.9 mg/dL (8.5-10.1); COR NA(FOR HYPERGLY) 138 mmol/L (136-145); CREATININE 0.82 mg/dL (0.70-1.30); SODIUM 137 mmol/L (136-145); eGFR NON BLACK RACES > 60 (>60)
[2018-04-06 07:30] LABS: PLATELET MORPHOLOGY COMMENT NORMAL (NORMAL)
[2018-04-06] MEDS: ASPIRIN 81 MG CHEWTAB PO SCH (08:35)
[2018-04-06] MEDS: VITAMIN C PO SCH (08:35)
[2018-04-06] MEDS: CLARITIN PO SCH (08:35)
[2018-04-06] MEDS: PROTONIX TAB 40 MG PO SCH (08:35)
[2018-04-06] MEDS: FERROUS GLUCONATE PO SCH (08:35)
[2018-04-06] MEDS: ZYLOPRIM PO SCH (08:36)
[2018-04-06 12:55] VITALS: BP 131/83
== END 2018-04-06 14:45 | disposition home or self-care (01) | DRG 948 ==
LOC: MED/SURG 03-30 20:00
PROVIDERS: ADMIT Internal Medicine; ATTEND Internal Medicine
DX: C78.00 Secondary malignant neoplasm of unspecified lung; R62.7 Adult failure to thrive; R26.89 Other abnormalities of gait and mobility; M13.89 Other specified arthritis, multiple sites; R13.11 Dysphagia, oral phase; J44.9 Chronic obstructive pulmonary disease, unspecified; R53.1 Weakness; R06.02 Shortness of breath; Z85.818 Personal history of malignant neoplasm of other sites of lip, oral cavity, and pharynx; R13.0 Aphagia; I10 Essential (primary) hypertension; I69.891 Dysphagia following other cerebrovascular disease; Z93.0 Tracheostomy status